=== PATIENT | female | born 2000 | race African-American/Black ===

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

== ENCOUNTER 2021-11-07 01:16 | Inpatient (IN) ==
[2021-11-07] MEDS ORDERED: Buffered Lidocaine 1% SYRIN 1 ml INTRADERM ONE (02:09)
[2021-11-07] MEDS ORDERED: Lactated Ringers 1000 ml BAG 1,000 ML IV ONE ×2 (02:09→06:24)
[2021-11-07] MEDS ORDERED: Promethazine INJ(RESTRICTED) 25 MG/ML 1 ml VIAL IV PRN (04:14)
[2021-11-07] MEDS ORDERED: Morphine 10 MG/ML VIAL (1 ml) IV ONE (04:15)
[2021-11-07 05:04] LABS: ABS Eosinophils 0.2 10^3/ul (0-0.6); ABS Lymphocytes 1.7 10^3/ul (1.0-4.8); ABS Monocytes 0.7 10^3/ul (0-0.8); ABS Neutrophils 3.7 10^3/ul (1.5-7.7); Hematocrit 31 % (35-47); Hemoglobin 9.9 g/dL (12.0-16.0); Mean Corpuscular HGB Conc 33 g/dL (31-36); Mean Corpuscular Hemoglobin 25 pg (27-31); Mean Corpuscular Volume 78 fL (80-97); Mean Platelet Volume 7.9 fL (7.4-10.4); Nucleated Red Blood Cells % 0.1; Platelet Count 365 10^3/uL (150-450); Red Blood Count 3.94 10^6 /uL (3.70-4.87); Red Cell Distribution Width 15 % (10-15); White Blood Count 6.3 10^3/uL (3.5-10.8)
[2021-11-07 05:21] LABS: Urine Benzodiazepine Screen None Detected (None Detect); Urine Cannabinoids Screen None Detected (None Detect); Urine Opiates Screen None Detected (None Detect)
[2021-11-07] MEDS ORDERED: Lidocaine 1.5% EPI 1:200,000 30 ML SDV ONE (05:36)
[2021-11-07] MEDS ORDERED: OBEPIDURAL (200 ML) 200 ML EPIDURAL ONE (05:36)
[2021-11-07] MEDS ORDERED: Sodium Citrate/Citric Acid LIQ 15 ML UDC PO PRN (06:24)
[2021-11-07] MEDS ORDERED: Phenylephrine 40 mcg/mL 10mL (400mcg) SYRINGE IV PUSH PRN ×2 (06:24)
[2021-11-07] MEDS ORDERED: EPHEDrine (Pressors) 50 MG/ML VIAL IV PUSH PRN (06:24)
[2021-11-07] MEDS ORDERED: Lactated Ringers 1000 ml BAG 1,000 ML IV SCH ×2 (07:00→09:00)
[2021-11-07] MEDS ORDERED: OBEPIDURAL (200 ML) 200 ML EPIDURAL SCH (07:00)
[2021-11-07] MEDS ORDERED: Oxytocin in LR 20 UNITS/1,000 ML BAG IVPB ONE (07:56)
[2021-11-07] MEDS ORDERED: Witch Hazel PAD JAR TOPICAL PRN (08:02)
[2021-11-07] MEDS ORDERED: Oxytocin in LR 20 UNITS/1,000 ML BAG IVPB SCH (09:00)
[2021-11-07] MEDS: Dibucaine 1% OINT 28.35 GM TUBE PR PRN (09:22)
[2021-11-07] MEDS ORDERED: diPHENhydraMINE 25 mg TAB PO ONE (10:24)
[2021-11-08 06:54] LABS: ABS Basophils 0.1 10^3/ul (0-0.2); ABS Eosinophils 0.2 10^3/ul (0-0.6); ABS Monocytes 0.9 10^3/ul (0-0.8); ABS Neutrophils 4.8 10^3/ul (1.5-7.7); Eosinophil % 2.1 %; Hematocrit 29 % (35-47); Hemoglobin 9.4 g/dL (12.0-16.0); Lymphocyte % 24.9 %; Mean Corpuscular HGB Conc 32 g/dL (31-36); Mean Corpuscular Hemoglobin 25 pg (27-31); Mean Corpuscular Volume 78 fL (80-97); Mean Platelet Volume 7.5 fL (7.4-10.4); Nucleated Red Blood Cells % 0.1; Platelet Count 311 10^3/uL (150-450); Red Blood Count 3.72 10^6 /uL (3.70-4.87); Red Cell Distribution Width 15 % (10-15); White Blood Count 7.9 10^3/uL (3.5-10.8)
[2021-11-09 08:07] VITALS: BP 109/50
[2021-11-09] MEDS: Dibucaine 1% OINT 28.35 GM TUBE PR PRN (12:39)
== END 2021-11-09 13:50 | disposition home or self-care (01) | DRG 560 ==
LOC: MCHOBOUT 01:16 → MCHOB 02:07
PROVIDERS: ADMIT Advanced Practice Midwife; ATTEND Advanced Practice Midwife

== ENCOUNTER 2024-08-03 19:32 | Inpatient (IN) ==
[2024-08-03] MEDS ORDERED: Phenylephrine IV 10 MG/ML 1 ml VIAL ONE (21:16)
[2024-08-03] MEDS ORDERED: Ondansetron 4 mg VIAL 2 MG/ML 2 ml VIAL ONE (21:16)
[2024-08-03] MEDS ORDERED: Dexamethasone IV 4 MG/ML VIAL 1 ml VIAL ONE (21:16)
[2024-08-03] MEDS ORDERED: Morphine PF AMP (0.5MG/ML) 5 MG/10 ML AMP ONE (21:16)
[2024-08-03 21:20] LABS: Hematocrit 31.1 % (35-45); Hemoglobin 9.9 g/dL (11.5-14.3); Mean Corpuscular Hemoglobin 23.7 pg (27-33); Mean Corpuscular Hgb Conc 31.9 g/dL (31-36); Mean Corpuscular Volume 74.3 fL (80-97); Mean Platelet Volume 7.2 fL (7.5-11.2); Platelet Count 320 10^3/uL (150-450); Red Blood Count 4.18 10^6/uL (3.63-4.92); Red Cell Distribution Width 17.8 % (12-17); White Blood Count 7.9 10^3/uL (3.8-11.8)
[2024-08-03 21:46] LABS: ABS Eosinophils 0.1 10^3/uL (0.0-0.5); ABS Lymphocytes 1.7 10^3/uL (1.0-4.8); ABS Monocytes 0.8 10^3/uL (0.0-0.9); ABS Neutrophils 5.3 10^3/uL (1.5-7.6); ABS Nucleated RBC 0.05 10^3/ul; Anisocytosis 1+; Eosinophil % 1.9 %; Hypochromasia 1+; Lymphocyte % 21.3 %; Microcytosis 2+; Nucleated Red Blood Cells % 0.6 %/100WBC (0.0-0.8); Polychromasia 1+
[2024-08-03] MEDS ORDERED: Midazolam 2 mg/2 ml VIAL 1 mg/ml 2 ml VIAL (2 mg) ONE (21:52)
[2024-08-03] MEDS: ceFAZolin 2 GM PREMIX 2 GM/50 ML BAG IV ONE (22:25)
[2024-08-03] MEDS: Sodium Citrate/Citric Acid LIQ 15 ML UDC PO ONE (22:30)
[2024-08-03] MEDS ORDERED: Propofol 10 MG/ML 20 ML BTL ONE (22:45)
[2024-08-03] MEDS ORDERED: Oxytocin 10 UNITS/ML 1 ML VIAL ONE ×2 (22:45→23:00)
[2024-08-03] MEDS ORDERED: Acetaminophen IV 1 GM/100ML 1,000 MG/100 ML BAG IV ONE (22:50)
[2024-08-03] MEDS ORDERED: Glycerin ADULT 2.4 gm SUPP PR PRN (23:19)
[2024-08-03] MEDS ORDERED: Dibucaine 1% OINT 28.35 GM TUBE PR PRN (23:19)
[2024-08-03] MEDS ORDERED: Witch Hazel PAD JAR TOPICAL PRN (23:19)
[2024-08-03] MEDS ORDERED: Metoclopramide 5 MG/ML VIAL (10 mg) IV PRN (23:31)
[2024-08-03] MEDS ORDERED: Ondansetron 4 mg VIAL 2 MG/ML 2 ml VIAL IV PRN (23:31)
[2024-08-03] MEDS ORDERED: Naloxone 0.4 mg VIAL 0.4 mg/ml 1 ml VIAL IV PUSH PRN (23:31)
[2024-08-03] MEDS ORDERED: Acetaminophen IV 1 GM/100ML 1,000 MG/100 ML BAG IV PRN (23:31)
[2024-08-03 23:40] LABS: Urine Appearance Clear; Urine Bilirubin Negative (Negative); Urine Blood Negative (Negative); Urine Color Light-Yellow; Urine Glucose Negative (Negative); Urine Ketones 2+ (Negative); Urine Nitrite Negative (Negative); Urine Protein Negative (Negative); Urine Specific Gravity 1.007 (1.002-1.030); Urine Urobilinogen Negative (Negative); Urine pH 6.5 (5.0-8.0)
[2024-08-03] MEDS ORDERED: Lactated Ringers 1000 ml BAG 1,000 ML IV SCH (23:45)
[2024-08-04 00:36] LABS: Urine Benzodiazepine Screen None Detected (None Detect); Urine Cannabinoids Screen None Detected (None Detect); Urine Opiates Screen None Detected (None Detect)
[2024-08-04] MEDS: Oxytocin in NS 30,000 MILLI.UNIT/500 ML BAG IV ONE (01:46)
[2024-08-04] MEDS: Buffered Lidocaine 1% SYRIN 1 ml INTRADERM ONE (02:15)
[2024-08-04] MEDS: Azithromycin 500 mg/250 ml NS 500 MG/250 ML BAG IVPB ONE (05:35)
[2024-08-04] MEDS: Nalbuphine 10 MG/ML 1 ML VIAL IV PRN (06:09)
[2024-08-04 11:07] LABS: ABS Lymphocytes 1.2 10^3/uL (1.0-4.8); ABS Monocytes 0.6 10^3/uL (0.0-0.9); ABS Neutrophils 9.9 10^3/uL (1.5-7.6); ABS Nucleated RBC 0.05 10^3/ul; Eosinophil % 0.1 %; Hematocrit 29.7 % (35-45); Hemoglobin 9.1 g/dL (11.5-14.3); Lymphocyte % 10.4 %; Mean Corpuscular Hemoglobin 23.1 pg (27-33); Mean Corpuscular Hgb Conc 30.7 g/dL (31-36); Mean Corpuscular Volume 75.5 fL (80-97); Mean Platelet Volume 7.6 fL (7.5-11.2); Nucleated Red Blood Cells % 0.4 %/100WBC (0.0-0.8); Platelet Count 327 10^3/uL (150-450); Red Blood Count 3.94 10^6/uL (3.63-4.92); White Blood Count 11.9 10^3/uL (3.8-11.8)
[2024-08-05] MEDS: Lactated Ringers 1000 ml BAG 1,000 ML IV ONE (21:40)
[2024-08-05] MEDS: Lactated Ringers 1000 ml BAG 1,000 ML IV SCH (21:40)
[2024-08-06 19:38] VITALS: BP 125/62
== END 2024-08-06 21:32 | disposition home or self-care (01) | DRG 540 ==
LOC: MCHOBOUT 19:32 → MCHOB 20:47
PROVIDERS: ADMIT Obstetrics & Gynecology; ATTEND Obstetrics & Gynecology